=== PATIENT | female | born 1995 | race Caucasian/White ===

== ENCOUNTER 2018-09-21 22:02 | Emergency (ER) | payer MEDICAID, SELFPAY ==
[2018-09-21 22:03] VITALS: BP 118/77; PULSE 94; RESP 18; TEMP 36.9; O2SAT 97; BMI 25.8
[2018-09-21 22:33] LABS: Bacteria 0 SEEN /hpf (None Seen); Mucous, Urine 0 SEEN /hpf (<or=2+); Red Blood Cells-Urine 0 SEEN /hpf (0-5); White Blood Cells 0 SEEN /hpf (0-5)
[2018-09-21 22:46] LABS: Absolute Lymphocyte Count 3.23 X10^3/ul (0.83-4.51); Absolute Neutrophil Count 7.1 X10^3/uL (2.0-7.7); Basophil# 0.06 X10^3/uL; Basophil% 0.5 % (0-1); Eosinophils% 0.9 % (0-5); Hematocrit 39.6 % (37-47); Hemoglobin 13.1 g/dl (12.0-15.0); Lymphocyte # 3.23 X10^3/ul (4.0); Lymphocyte % 27.5 % (19-41); Mean Corp Hgb Conc 33.1 g/gl (32-36); Mean Corpuscular Hgb 28.7 pg (27.0-32.0); Mean Corpuscular Volume 86.8 fL (81-99); Mean Platelet Vol. 9.7 fl (6.2-12.0); Monocyte# 1.26 X10^3/uL; Monocyte% 10.7 % (0-10); Neutrophil # 7.07 X10^3/uL (2.7-7.7); Neutrophil % 60.3 % (47-70); POSITIVE COUNT NO; POSITIVE DIFFERENTIAL NO; POSITIVE MORPHOLOGY NO; Platelet Count 272 K/mm3 (150-450); RBC Distribution Width CV 12.6 % (11.6-14.6); RBC Distribution Width SD 40.2 fl (35.1-43.9); Red Blood Count 4.56 M/mm3 (4.2-5.4); White Blood Count 11.7 K/mm3 (4.4-11.0)
[2018-09-21 22:51] LABS: Color, Urine Yellow (Yellow); Glucose, Dipstick Normal (Normal); Ketone-Dipstick Negative (Negative); Leukocyte Esterase-Dipstick Negative /ul (Negative); Nitrite-Dipstick Negative (Negative); Occult Blood-Urine 10 /ul (Negative); Protein-Dipstick Negative (Negative); Urine Bilirubin Dipstick Negative (Negative); Urine Clarity Clear (Clear); Urine Urobilinogen Normal (Normal); Urine pH 6.5 (5.0 - 8.0)
[2018-09-21 23:00] LABS: Anion Gap 8 (5-15); BUN 17 mg/dL (7-18); BUN/Creat Ratio 16.5 RATIO (10-20); Calcium,Total 8.8 mg/dL (8.5-10.1); Chloride 107 mmol/L (98-107); Creatinine, Serum 1.03 mg/dL (0.55-1.02); EST Glomerular Filtration Rate 71 mL/min (>60); Est Glom Filt Rate - Afr Amer 86 mL/min (>60); Estimated Creatinine Clearance 70.87 ml/min; Glucose 91 mg/dL (74-106); Potassium 3.7 mmol/L (3.5-5.1); Sodium Level 142 mmol/L (136-145)
[2018-09-21 23:06] LABS: Squamous Epithelial Cells - UA 0-5 SEEN /hpf (5-10)
[2018-09-21 23:09] LABS: Pregnancy, Serum, hCG Quali. NEGATIVE Negative (0-9 Nonpreg)
--- NOTE | 2018-09-21 23:36 | ED.RN ---
DR. ROBLES SAID IT WAS OK FOR THIS NURSE TO PUT AN ORDER IN TO DO A CT WITH IV CONTRAST FOR THIS PATIENT WITH RIGHT SIDED ABDOMINAL PAIN.
[2018-09-22 01:11] VITALS: BP 107/58; PULSE 81; RESP 16; O2SAT 98
--- NOTE | 2018-09-22 01:23 | ED.VISSUMM ---
- ER Visit Summary Date of Service: 09/22/18 Chief Complaint: Right-sided abdominal pain History of Present Illness: The patient is a 22 F with intermittent right-sided abdominal pain for the past 1 week, constant today. She reports having some mild nausea and vomited one time last week. She denies diarrhea or constipation. She denies urinary symptoms. She has not had fever or chills. Physical Examination: Vital signs unremarkable. Patient's lying in bed no acute distress. She is nontoxic appearing. Head and neck examination normal. Heart is regular rate and rhythm. Lung sounds are clear. Abdomen is soft and nontender. There is no CVA tenderness. Test Results: CBC reveals white count 11.7 with normal differential. Chemistry studies normal. Urinalysis normal. test negative. CT abdomen pelvis with IV contrast was obtained which reveals pelvic congestion syndrome. There is a small amount of free fluid in the cul-de-sac. No evidence of appendicitis or diverticulitis. Emergency Department Course and Treatment: Test results are discussed with the patient. She will be given a dose of Toradol here and given naproxen for home. She will follow-up with her WEBSITE PROGRAMMER in [place]. Treatment Plan: [] Disposition: Discharge Impression: 1. Abdominal pain 2. Pelvic congestion syndrome This note was generated with [employer] dictation software. It may contain incorrect words, spelling, and punctuation that were not noted in review of the chart prior to signing ED Disposition - Plan for ED Patient: Disposition: Home or Assisted Living Instructions: ED Abdominal Pain Unkn Cause Prescriptions: Naproxen [Naprosyn] 500 mg PO BID PRN #20 tablet Additional Instructions: Follow-up with your HVAC SHEET METAL INSTALLER in [place] as discussed.
--- NOTE | 2018-09-22 01:23 | ED.DEP ---
ED Disposition - Plan for ED Patient: Disposition: Home or Assisted Living Instructions: ED Abdominal Pain Unkn Cause Prescriptions: Naproxen [Naprosyn] 500 mg PO BID PRN #20 tablet Additional Instructions: Follow-up with your CARPET OR RUG LAYER HELPER in [place] as discussed.
[2018-09-22 01:41] VITALS: BP 104/70; PULSE 85; PULSE 89; RESP 16; TEMP 37.1; O2SAT 98
--- NOTE | 2018-09-22 22:23 | CT_ITS ---
STUDY: CT ABDOMEN AND PELVIS WITH CONTRAST REASON FOR EXAM: Female, 22 years old. Right-sided abdominal pain on and off for 1 week RADIATION DOSAGE (If Supplied By Facility): CTDIvol = ( 9.56 ) mGy, DLP = ( 450.25 ) mGycm TECHNIQUE: Transaxial images were obtained from the dome of the diaphragm to the symphysis pubis without oral contrast. Isovue 370 100ML IV was administered. Sagittal and coronal images were reconstructed. Individualized dose optimization techniques were used for this CT. COMPARISON: None. FINDINGS: The lung bases are clear. The liver is normal. No dilated intrahepatic biliary radicles. Contracted gallbladder. No gallstones The spleen is normal. The pancreas is normal. Both adrenals are normal. The kidneys are normal with no masses, calculi or hydronephrosis The stomach is normal. There is no bowel distention, acute appendicitis or diverticulitis. No constricting lesions are seen in large bowel. Mild fecal stasis. The abdominal wall is intact with no hernias. There is no ascites or any free intraperitoneal air. No indication of epiploic appendagitis An enlarging engorged ovarian vein draining into the left renal vein There is no retrocrural, retroperitoneal or mesenteric adenopathy. The bones and joints are normal. The urinary bladder is normal.--The uterus is normal. Congestive veins bilaterally. A small amount of free fluid in the cul-de-sac.. There is no inguinal or pelvic adenopathy. There is no inguinal hernia. . CT/Abdomen/Pelvis W IV Cont ONLY IMPRESSION: Pelvic congestion syndrome. A small amount of free fluid in the cul-de-sac. Fecal stasis. No acute appendicitis or diverticulitis Electronically Signed: Joe Voss MD at 0:54 EDT Tel , Service support ,
== END 2018-09-22 01:42 | disposition home or self-care (01) ==
PROVIDERS: Emergency Provider Emergency Medicine
DX: R10.9 Unspecified abdominal pain (principal); N94.89 Other specified conditions associated with female genital organs and menstrual cycle; F32.9 Major depressive disorder, single episode, unspecified; F41.9 Anxiety disorder, unspecified; K21.9 Gastro-esophageal reflux disease without esophagitis; Z87.891 Personal history of nicotine dependence
CPT/HCPCS: 74177; 80048; 81001; 84703; 85025; 96374; 99284; Q9967

== ENCOUNTER 2019-11-05 19:15 | Emergency (ER) | payer MEDICAID, SELFPAY ==
[2019-11-05 19:15] VITALS: BP 130/82; PULSE 90; RESP 18; TEMP 36.8; O2SAT 98; BMI 24.5
--- NOTE | 2019-11-05 20:11 | ED.DCSUM_ITS ---
History of Present Illness Chief Complaint: Suicidal Informant: Patient Narrative: Patient presents to the emergency room asking for help with her depression and does note suicidal thoughts. Patient states that she is been treated for depression for about 5 years. 4 years ago she states she was in a very dark place and her roommate at the time helped her through it. She did contemplate suicide at that time but did not attempt. The patient reports that she has a 2-1/2-year-old son that she shares custody with the biologic father with. She has a full-time job and a part-time job. She has no pending legal issues. She is currently on Prozac for the past 6 months. She states that she sits on the floor and cries. She states there is not one particular thing that has really upset. Her sister who lives in [place] is the one that convinced her to come in tonight after she dropped her son off at his father's. While she states she has no specific plan she mentions several ideas such as crashing her car and overdosing very readily. She denies any ingestions. Past Medical History - Allergies and Home Meds Allergies/Adverse Reactions: Allergies No Known Allergies Allergy (Verified 11/05/19 19:18) Primary Care Physician: Care Physician,No Primary [NON-STAFF] - Smoking Status: Former smoker Review of Systems General: Denies: Chills, Fever, Sweats Eyes: Denies: Visual changes - bilaterally, Diplopia ENT: Denies: Rhinorrhea, Sore throat Cardiovascular: Denies: Chest pain, Palpitations Respiratory: Denies: Dyspnea, Cough, Dyspnea on exertion Gastrointestinal: Denies: Abdominal pain, Nausea, Vomiting, Diarrhea, Melena, Hematochezia Genitourinary: Denies: Dysuria, Hematuria, Frequency Musculoskeletal: Denies: Back pain, Extremity Pain Skin: Denies: Rash, Wounds Neurological: Denies: Headache, Weakness, Numbness Psych: Reports: Depression, Anxiety, Suicidal thoughts, Suicidal ideations Physical Exam Vital Signs/Narrative: Vital Signs Temp Pulse Resp BP Pulse Ox 11/05/19 19:15 98.2 F 90 18 130/82 H 98 Inital Vital Signs reviewed: Yes General: Well nourished, Well developed, No Acute Distress Head: Normocephalic, Atraumatic Eyes: Perrl, EOMI ENT: Moist mucous membranes, No rhinorrhea Neck: Supple, Nontender Cardiovascular: Regular rate, Regular rhythm, No murmurs Respiratory: No distress, CTA bilaterally, Chest nontender Abdomen: Soft, Nontender, Nondistended, Normal bowel sounds Back: Nontender, Normal Inspection Extremities: Nontender, No edema Skin: Normal color, No rash Neurological: Alert, Oriented x3, Cranial nerves II-XII grossly intact, Normal Strength, Normal Sensation Psychological: Depressed, Tearful, - - Admits to suicidal thoughts Diagnostic/Tx/Re-eval - Medical Decision Making Patient was medically cleared. Social work was very instrumental in helping us get her placed. She is voluntary (but we will still fill out a pink slip per protocol at the receiving institution [facility])and has been very cooperative with us and appreciative. ED Disposition - Plan for ED Patient: Disposition: Psychiatric Hospital or Unit Diagnosis: Major depression, Suicidal ideation Referrals: Care Physician,No Primary [NON-STAFF] -
[2019-11-05 20:27] LABS: Absolute Lymphocyte Count 2.81 X10^3/uL (0.83-4.51); Absolute Neutrophil Count 5.7 X10^3/uL (2.0-7.7); Basophil# 0.08 X10^3/uL; Basophil% 0.8 % (0-1); Eosinophil# 0.17 X10^3/uL; Eosinophils% 1.7 % (0-5); Hematocrit 36.8 % (37-47); Hemoglobin 12.4 g/dL (12.0-15.0); Lymphocyte # 2.81 X10^3/ul (4.0); Lymphocyte % 28.9 % (19-41); Mean Corp Hgb Conc 33.7 g/dL (32-36); Mean Corpuscular Hgb 29.5 pg (27.0-32.0); Mean Corpuscular Volume 87.4 fL (81-99); Mean Platelet Vol. 9.8 fl (6.2-12.0); Monocyte# 0.91 X10^3/uL; Monocyte% 9.4 % (0-10); NRBC Flagged by Analyzer 0 % (0-5); Neutrophil # 5.72 X10^3/uL (2.7-7.7); Neutrophil % 58.9 % (47-70); Platelet Count 267 K/mm3 (150-450); RBC Distribution Width CV 12.4 % (11.6-14.6); RBC Distribution Width SD 38.6 fl (35.1-43.9); Red Blood Count 4.21 M/mm3 (4.2-5.4); White Blood Count 9.7 K/mm3 (4.4-11.0)
[2019-11-05 20:49] LABS: ALB/GLOB Ratio 1.2 RATIO (0.9-2.4); AST(SGOT) 13 U/L (15-37); Alanine Aminotransfer ALT/SGPT 14 U/L (13-56); Alkaline Phosphatase 61 U/L (45-117); Anion Gap 8 (5-15); BUN 15 mg/dL (7-18); BUN/Creat Ratio 24.6 RATIO (10-20); Calcium,Total 9.2 mg/dL (8.5-10.1); Chloride 107 mmol/L (98-107); Creatinine, Serum 0.61 mg/dL (0.55-1.02); EST Glomerular Filtration Rate 128 mL/min (>60); Est Glom Filt Rate - Afr Amer 155 mL/min (>60); Estimated Creatinine Clearance 113.44 ml/min; Globulin 3.3 g/dL (2.2-4.2); Glucose 93 mg/dL (74-106); Potassium 3.4 mmol/L (3.5-5.1); Protein, Total 7.3 g/dL (6.4-8.2); Sodium Level 142 mmol/L (136-145); Thyroid Stim Hormone (TSH) 2.17 uIU/mL (0.358-3.74)
[2019-11-05 20:54] LABS: Amphetamine Urine VISTA NEGATIVE (<1000 ng/mL); Barbiturate Urine VISTA NEGATIVE (< 200 ng/mL); Benzodiazepine Urine VISTA NEGATIVE (< 200 ng/mL); Cocaine Urine VISTA NEGATIVE (< 300 ng/mL); Ecstacy Urine VISTA NEGATIVE (< 500 ng/mL); Methadone Urine VISTA NEGATIVE (< 300 ng/mL); PCP Urine VISTA NEGATIVE (< 25 ng/mL); THC Urine VISTA NEGATIVE (< 50 ng/mL); Vista UDS pH Range 6
[2019-11-05 20:56] LABS: Internal QC Validated? YES +Cl - CLEAR BKGD; Pregnancy, Serum, hCG Quali. NEGATIVE Negative
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
[2019-11-05 21:15] VITALS: RESP 16
--- NOTE | 2019-11-05 21:29 | CM.ED ---
SOCIAL WORK REFERRAL CALLED AND FAXED TO JORDAN AT [facility]. AWAITING ACCEPTANCE AT THIS TIME. Juwan JAY, ROAD BOSS, COOKER CHIP.
--- NOTE | 2019-11-05 21:49 | CM.ED ---
SOCIAL WORK PATIENT ACCEPTED TO [facility] BY [facility] PALOMINO TO THE [facility] ([facility]). NURSE TO CALL REPORT TO [facility]. STAFF UPDATED. PINK SLIP COMPLETED PER REQUEST AND FAXED PER REQUEST. Juwan JAY, BASEBALL COACH, HAND CHAIN MAKER.
[2019-11-05 21:53] LABS: Alcohol, Blood (Medical)-Serum < 3.0 mg/dL
--- NOTE | 2019-11-05 22:20 | ED.RN ---
[facility] CALLED FOR TRANSPORT ETA 2 HOURS
[2019-11-05 22:33] VITALS: BP 104/67; PULSE 84; RESP 18; O2SAT 97
[2019-11-05 23:40] VITALS: BP 104/67; RESP 18; O2SAT 97
[2019-11-06 00:48] VITALS: RESP 16
== END 2019-11-06 01:25 ==
PROVIDERS: Emergency Provider Emergency Medicine; PCP Nurse Practitioner Primary Care
DX: R45.851 Suicidal ideations (principal); F32.9 Major depressive disorder, single episode, unspecified; Z87.891 Personal history of nicotine dependence
CPT/HCPCS: 36415; 80053; 80307; 80320; 84443; 84703; 85025; 99284; G0480

== ENCOUNTER 2021-05-10 10:13 | Emergency (ER) | payer MEDICAID, SELFPAY ==
[2021-05-10 10:14] VITALS: BP 108/72; PULSE 96; RESP 16; TEMP 36.6; O2SAT 92; BMI 27.4
--- NOTE | 2021-05-10 10:21 | ED.RN ---
STANDING VS: 108/72, 116. TOLERATED WELL
[2021-05-10 11:53] VITALS: BP 99/63; PULSE 86; RESP 12; O2SAT 98
--- NOTE | 2021-05-10 12:59 | EX.ED.DYSGE1 ---
HPI History of Present Illness Chief Complaint: Dizziness Informant: patient Onset/Context/Timing Onset: Today Context: Sudden Onset Timing: Lasts (1 to 1-1/2 hours) Quality: Lightheaded and weak Location: Generalized Worsened by: Nothing Relieved by: Nothing Narrative Narrative: Patient presents with dizziness and lightheadedness that began today. Patient states she was at work when this happened. Patient states she is approximately 22 weeks . Patient states she felt like she was going to pass out. Patient states that someone at work took her pulse and noticed it was elevated. Patient saw her AGILE QA TESTER who checked her blood pressure and said it was low. She was then referred to the emergency department. Patient states that when she got to the emergency department her symptoms have improved. Patient states her symptoms lasted approximately 1 to 1-1/2 hours. Patient states she did feel somewhat short of breath when she was dizzy. [facility] Medical History Tonsillectomy planned Home Medications omeprazole [Prilosec] 10 mg PO DAILY 05/10/21 [History Last Taken Unknown] ondansetron 4 mg PO PRN PRN 05/10/21 [History Last Taken Unknown] Allergy/AdvReac Type Severity Reaction Status Date / Time No Known Allergies Allergy Verified 05/10/21 10:19 Surgical History Hx of tonsillectomy Social History Smoking Status: Never smoker ROS ROS ED Constitutional Constitutional ED: Denies chills or fever(s) Eyes Eyes: Denies blurry vision or change in vision ENT ENT ED: Denies rhinorrhea or sore throat Cardiovascular Cardiovascular: Denies chest pain or palpitations Respiratory/Chest Respiratory/Chest: Reports dyspnea; Denies cough Gastrointestinal Gastrointestinal: Denies nausea or vomiting Genitourinary Genitourinary ED: Denies dysuria or hematuria Musculoskeletal Musculoskeletal: Denies back pain or neck pain Integumentary Denies abscess or rash Neurologic Neurologic: Reports weakness; Denies headache(s) Allergic/Immunologic Allergic/Immunologic ED: Denies mouth swelling or urticaria EXAM Physical Exam Const Vital Signs: 05/10/21 10:14 05/10/21 11:53 05/10/21 13:09 Temperature 97.8 F Temperature Source Temporal Pulse Rate 96 86 76 Respiratory Rate 16 12 18 Respiratory Effort Normal Non-Labored Respiratory Pattern Normal Blood Pressure 108/72 99/63 93/52 L Blood Pressure Mean 84 75 65 Pulse Ox 92 98 99 Oxygen Delivery Method Room Air Room Air Room Air 05/10/21 14:33 Temperature Temperature Source Pulse Rate 76 Respiratory Rate 19 H Respiratory Effort Respiratory Pattern Blood Pressure 105/69 Blood Pressure Mean 81 Pulse Ox 100 Oxygen Delivery Method Room Air Positive well nourished and well developed General Appearance ED: well developed HEENT Reports moist mucous membranes Neck supple and no JVD Resp normal respiratory effort and clear to auscultation bilaterally Cardio regular rate, regular rhythm and no murmurs GI normal to inspection, nondistended, normoactive bowel sounds and non-tender Palpation: soft Extremity normal to inspection General Extremety ED: Negative for edema or tenderness General Extremity: Negative for edema Neuro oriented x3, CN's II-XII intact bilaterally and no sensory deficits noted Sensorium / Orientation: alert Motor Exam: strength 5/5 throughout Psych mental status grossly normal Skin no rashes or lesions noted MDM MDM MDM Narrative Medical decision making narrative: Patient was given IV fluids here. CBC and comprehensive metabolic profile were within normal limits. Urinalysis does not show any evidence of urinary tract infection. Patient is feeling better on reevaluation. Patient was instructed to drink plenty of fluids. Patient was instructed to follow-up with her primary care physician in 5 to 7 days. Patient was instructed to follow-up with her AGILE QA TESTER as well. Patient understood and was agreeable with the plan. All questions were answered Lab Data Attestation: I reviewed the patient's lab results. Labs: Laboratory Results - last 24 hr 05/10/21 05/10/21 05/10/21 13:00 13:00 14:30 WBC 8.2 RBC 3.54 L Hgb 10.5 L Hct 30.8 L MCV 87.0 MCH 29.7 MCHC 34.1 RDW Std Deviation 40.1 RDW Coeff of Chava 12.6 Plt Count 203 MPV 9.0 Immature Gran % (Auto) 0.400 Neut % (Auto) 70.8 H Lymph % (Auto) 18.3 L [place] % (Auto) 9.0 Eos % (Auto) 1.0 Baso % (Auto) 0.5 Absolute Neuts (auto) 5.8 Absolute Lymphs (auto) 1.49 Nucleated RBC % 0 Sodium 137 Potassium 3.7 Chloride 106 Carbon Dioxide 25.0 Anion Gap 6 BUN 6 L Creatinine 0.40 L Estim Creat Clear Calc 170.04 Est GFR (MDRD) Af Amer 252 Est GFR (MDRD) Non-Af 208 BUN/Creatinine Ratio 15.1 Glucose 75 Calcium 8.6 Total Bilirubin 0.10 L AST 9 L ALT 11 L Alkaline Phosphatase 46 Total Protein 6.6 Albumin 2.9 L Globulin 3.7 Albumin/Globulin Ratio 0.8 L Urine Color Yellow Urine Clarity Clear Urine pH 7.0 Ur Specific [place] 1.010 Urine Protein Negative Urine Glucose (UA) Normal Urine Ketones 15 H Urine Occult Blood Negative Urine Nitrite Negative Urine Bilirubin Negative Urine Urobilinogen Normal Ur Leukocyte Esterase Negative Urine RBC 0-5 SEEN Urine WBC 0 SEEN Ur Squamous Epith Cells 0-5 SEEN Urine Bacteria RARE Urine Mucus 0 SEEN Discharge Plan Triage Chief Complaint: Dizziness ED Provider: Patrick Jaquez Dx/Rx/DC Orders Clinical Impression: Lightheadedness Instructions: ED Dizziness, Uncertain Cause Prescriptions: No Action ondansetron 4 mg tablet,disintegrating 4 mg PO PRN PRN (Reason: Nausea) RF: 0 omeprazole [Prilosec] 10 mg Capsule,Delayed Release(Dr/Ec) 10 mg PO DAILY RF: 0 Primary Care Provider: Bear Barrera NP Referrals: Bear Barrera NP, APPLIANCE REPAIR TECHNICIAN-C [Primary Care Provider] - 3-5 Days Disposition Disposition: Home, Self Care
[2021-05-10 13:09] VITALS: BP 93/52; PULSE 76; RESP 18; O2SAT 99
[2021-05-10] MEDS: 0.9% Normal Saline 1,000 ML 1000 ML IV (13:09)
[2021-05-10 13:10] LABS: Absolute Lymphocyte Count 1.49 X10^3/uL (0.83-4.51); Absolute Neutrophil Count 5.8 X10^3/uL (2.0-7.7); Basophil# 0.04 X10^3/uL; Basophil% 0.5 % (0-1); Eosinophil# 0.08 X10^3/uL; Hematocrit 30.8 % (37-47); Hemoglobin 10.5 g/dL (12.0-15.0); Lymphocyte # 1.49 X10^3/ul (0.83-4.51); Lymphocyte % 18.3 % (19-41); Mean Corp Hgb Conc 34.1 g/dL (32-36); Mean Corpuscular Hgb 29.7 pg (27.0-32.0); Monocyte# 0.73 X10^3/uL; NRBC Flagged by Analyzer 0 % (0-5); Neutrophil # 5.78 X10^3/uL (2.7-7.7); Neutrophil % 70.8 % (47-70); Platelet Count 203 K/mm3 (150-450); RBC Distribution Width CV 12.6 % (11.6-14.6); RBC Distribution Width SD 40.1 fl (35.1-43.9); Red Blood Count 3.54 M/mm3 (4.2-5.4); White Blood Count 8.2 K/mm3 (4.4-11.0)
[2021-05-10 13:44] LABS: ALB/GLOB Ratio 0.8 RATIO (0.9-2.4); AST(SGOT) 9 U/L (15-37); Alanine Aminotransfer ALT/SGPT 11 U/L (13-56); Albumin, Serum 2.9 g/dL (3.2-5.0); Alkaline Phosphatase 46 U/L (45-117); Anion Gap 6 (5-15); BUN 6 mg/dL (7-18); BUN/Creat Ratio 15.1 RATIO (10-20); Calcium,Total 8.6 mg/dL (8.5-10.1); Chloride 106 mmol/L (98-107); EST Glomerular Filtration Rate 208 mL/min (>60); Est Glom Filt Rate - Afr Amer 252 mL/min (>60); Estimated Creatinine Clearance 170.04 ml/min; Globulin 3.7 g/dL (2.2-4.2); Glucose 75 mg/dL (74-106); Potassium 3.7 mmol/L (3.5-5.1); Protein, Total 6.6 g/dL (6.4-8.2); Sodium Level 137 mmol/L (136-145)
[2021-05-10 14:33] VITALS: BP 105/69; PULSE 76; RESP 19; O2SAT 100
[2021-05-10 14:38] LABS: Mucous, Urine 0 SEEN /hpf (<or=2+); White Blood Cells 0 SEEN /hpf (0-5)
[2021-05-10 14:42] LABS: Color, Urine Yellow (Yellow); Glucose, Dipstick Normal (Normal); Ketone-Dipstick 15 mg/dl (Negative); Leukocyte Esterase-Dipstick Negative /ul (Negative); Nitrite-Dipstick Negative (Negative); Occult Blood-Urine Negative /ul (Negative); Protein-Dipstick Negative (Negative); Urine Bilirubin Dipstick Negative (Negative); Urine Clarity Clear (Clear); Urine Urobilinogen Normal (Normal)
[2021-05-10 14:47] LABS: Bacteria RARE /hpf (None Seen); Red Blood Cells-Urine 0-5 SEEN /hpf (0-5); Squamous Epithelial Cells - UA 0-5 SEEN /hpf (5-10)
[2021-05-10 15:39] VITALS: BP 100/74; PULSE 87; RESP 16; O2SAT 100
== END 2021-05-10 15:39 | disposition home or self-care (01) ==
PROVIDERS: Emergency Provider Emergency Medicine; PCP Nurse Practitioner Primary Care
DX: O26.892 Other specified pregnancy related conditions, second trimester (principal); R42 Dizziness and giddiness; Z3A.22 22 weeks gestation of pregnancy
CPT/HCPCS: 80053; 81001; 85025; 96360; 99283; J7030; A4216

== ENCOUNTER → 2022-06-10 | Outpatient (CLI) | payer MEDICAID, SELFPAY | END | disposition home or self-care (01) | LOC: LABSPEC 10:01 | PROVIDERS: PCP Nurse Practitioner Primary Care; Visit Provider Physician Assistant Surgical | DX: N30.90 Cystitis, unspecified without hematuria (principal) | CPT/HCPCS: 87077; 87086; 87088; 87186 ==